=== PATIENT | female | born 1985 | race Native Hawaiian/Other Pacific Islander ===

== ENCOUNTER 2020-09-24 19:30 | Emergency (ER) | payer OTHER ==
[~2020-09-24] VITALS: Ht 162.6 cm; Wt 72.6 kg
[2020-09-24 20:36] VITALS: BP 134/72; TEMP 98.3
== END 2020-09-24 20:36 | disposition home or self-care (01) ==
LOC: ED 19:30
DX: Z51.89 Encounter for other specified aftercare (principal)
CPT/HCPCS: 99282